=== PATIENT | female | born 1985 | race Caucasian/White ===

== ENCOUNTER → 2016-08-13 | Day surgery (SDC) | payer BC ==
--- NOTE | 2016-08-08 10:05 | MH ---
cc: MARY HOWARD M.D. DATE OF ADMISSION 08/13/2016 DATE OF 12/11/1981 SCHEDULED PROCEDURE Hysteroscopy with MyoSure and removal of intrauterine polyp versus septum. HISTORY OF PRESENT ILLNESS The patient is a 30-year-old , white female, nulligravida with LMP July 26, 2016 who is desirous of conception. She has had menses about every 32 days, although in the past they were 25-28 days. She has had a short luteal phase of 7-8 days. She has undergone endometrial biopsy in the office which caused her to become vasovagal. Her has a normal semen analysis. She has no history of PID, abnormal Pap smears. No abnormal hair growth patterns, no nipple discharge, no headache or blurred vision. Menarche was at 14. She is having intercourse two to three times a week. She has been using progesterone suppositories in the second half of her cycle. She underwent a sonohysterogram which showed a long thin septum floating in the intrauterine cavity and is scheduled to have this removed under anesthesia due to the discomfort she has had with the procedures in the office. ALLERGIES She has no allergies. PHYSICAL EXAMINATION NECK: She has no thyromegaly. LUNGS: Her lungs were clear. CARDIOVASCULAR: Rate and rhythm are regular. VITAL SIGNS: Her weight is 163, her height is 5'4". Her blood pressure is 120/70. She has had no allergies. ABDOMEN: Benign. She has no abnormal hair growth or pigmentation. PELVIC: The perineum is estrogenized. Vault is elevated. Cervix is nulliparous. Uterus is anteverted and mobile. Both ovaries are not palpable. There is no descent of the pelvic tissues. EXTREMITIES: Unremarkable. IMPRESSION Fertility unproven, possible primary infertility. Probable septum in the intrauterine cavity that should be excised. She is scheduled to have a hysteroscopy and MyoSure to evaluate the intrauterine cavity and should the septum be confirmed to be in place she will at that time undergo removal of septum. The risks, benefits, expectations have been described in detail. She has signed consents and is scheduled for the . MD JOSE Boston/HENRIK /9:30 PM /9:42 AM
[~2016-08-13] MED LIST: KETOROLAC TROMETHAMINE 30 MG/ML (IVP) VIAL IV PUSH ONE; LACTATED RINGER'S 1000 ML INJ 1,000 ML ONE; MIDAZOLAM HCL 2 MG/2 ML VIAL ONE; ONDANSETRON HCL 4 MG/2 ML VIAL IV PUSH ONE; PROPOFOL 200 MG/20 ML AMP IV ONE; ceFAZolin INJ 1,000 MG VIAL ONE
--- NOTE | 2016-08-21 18:44 | MP ---
cc: NENA HOWARD DATE OF SURGERY 08/13/2016 PREOPERATIVE DIAGNOSIS Elongated thin polyp versus a elongated septum with irregular bleeding. POSTOPERATIVE DIAGNOSIS Elongated thin polyp versus a elongated septum with irregular bleeding, pathology pending. PROCEDURE Hysteroscopy with MyoSure SURGEON Nena Howard MD ANESTHESIA General FINDINGS Examination under anesthesia revealed an anteverted mobile uterus with a slightly gaping cervical os. The intrauterine cavity did show this elongated polyps that I think was really not a septum, but an extended piece of polypoid material possibly responsible for bleeding and possibly preventing implantation. This was easily removed and the intrauterine cavity was otherwise unremarkable with normal tubal ostia. There did not appear to be Mullerian defect from this point of view, although on ultrasound it does suggest an arcuate uterus. ESTIMATED BLOOD LOSS Average COUNTS The sponge, instrument, and needle counts were correct and she tolerated the procedure well. PROCEDURE The patient was identified as Sherrill Slaughter, her permit was reviewed in holding. She was taken to the operating room, placed under general endotracheal anesthesia in the dorsal lithotomy position. A time-out was performed with all in attending. She had received one gram of Ancef. After examination under anesthesia, the cervix was grasped with a tenaculum, gently dilated to allow the passage of the MyoSure hysteroscope. Then this was used to evaluate the intrauterine cavity and then the large MyoSure was used to remove the central elongated polyp. Base on the fact that it did not have a wide the base, it did appear to look more like a polyp than a septum and it was removed in its entirety and other areas were lush tissue were removed and essentially a curetting was performed of the entire intrauterine cavity. She did not have significant bleeding. She had no iatrogenic injury. There was no other pathology identified. She was placed in the dorsal supine position, awoken and taken to the recovery room in stable condition. MD JOSE Boston/ANDREA /5:04 PM /6:37 PM
== END | disposition home or self-care (01) ==
LOC: ESDC 06:23
PROVIDERS: ATTEND Obstetrics & Gynecology
DX: N92.0 Excessive and frequent menstruation with regular cycle (principal); N84.0 Polyp of corpus uteri
CPT/HCPCS: 00952; 58558; 88305; J0690; J1885; J2250; J2405; J3010; J7120